=== PATIENT | female | born 2000 | race Caucasian/White ===

== ENCOUNTER 2021-12-23 00:11 | Emergency (ER) | payer OTHER ==
[~2021-12-23] VITALS: Ht 170.2 cm; Wt 62.7 kg
[2021-12-23 01:05] LABS: BASO % 0.3 % (0.0-1.0); EOS # 0.1 10^3/uL (0.0-0.5); EOS % 0.5 % (0.0-3.0); HEMATOCRIT 33.1 % (36.0-47.0); HEMOGLOBIN 11.1 g/dl (12.0-15.5); LYMPH # 2.7 10^3/uL (1.5-5.0); MEAN CORPUSCULAR HEMOGLOBIN 29.1 pg (27.0-33.0); MEAN CORPUSCULAR HGB CONC 33.5 g/dl (32.0-36.5); MEAN CORPUSCULAR VOLUME 86.6 fl (80.0-96.0); MONO # 1.1 10^3/uL (0.0-0.8); MONO % 6.7 % (2.0-8.0); NEUTROPHILS # 11.9 10^3/uL (1.5-8.5); NEUTROPHILS % 75.1 % (36.0-66.0); PLATELET COUNT, AUTOMATED 239 10^3/uL (150-450); RED BLOOD COUNT 3.82 10^6/uL (4.00-5.40); WHITE BLOOD COUNT 15.8 10^3/uL (4.0-10.0)
[2021-12-23] MEDS ORDERED: ONDANSETRON 4MG/2ML VIAL IV ONE (01:05)
[2021-12-23] MEDS ORDERED: MORPHINE 4 MG/ML 1ML VIAL/SYRINGE (J2270) IV ONE (01:05)
[2021-12-23 01:20] LABS: HCG, SERUM QUALITATIVE NEGATIVE (NEGATIVE)
[2021-12-23 01:45] LABS: ALBUMIN 4.2 GM/DL (3.2-5.2); ALT/SGPT 17 U/L (12-78); AMYLASE 39 U/L (25-115); BILIRUBIN,DIRECT 0.2 MG/DL (0.0-0.2); BILIRUBIN,TOTAL 0.5 MG/DL (0.2-1.0); BLOOD UREA NITROGEN 11 MG/DL (7-18); CALCIUM LEVEL 8.9 MG/DL (8.5-10.1); CARBON DIOXIDE LEVEL 27 MEQ/L (21-32); CHLORIDE LEVEL 110 MEQ/L (98-107); CREATININE FOR GFR 0.73 MG/DL (0.55-1.30); GLUCOSE, FASTING 112 MG/DL (70-100); LIPASE 138 U/L (73-393); POTASSIUM SERUM 3.3 MEQ/L (3.5-5.1); SODIUM LEVEL 142 MEQ/L (136-145); TOTAL PROTEIN 7.7 GM/DL (6.4-8.2)
[2021-12-23] MEDS ORDERED: TAMSULOSIN 0.4 MG CAP PO ONE (02:35)
[2021-12-23] MEDS ORDERED: NORCO, ANEXSIA 5/325MG TABLET (HYDROcodone/ACETAMINOPHEN) PO ONE (02:35)
[2021-12-23] MEDS ORDERED: NS 1,000 ML IV ONE (02:35)
[2021-12-23] MEDS ORDERED: HYDR-3713 PO (02:45)
[2021-12-23] MEDS ORDERED: NORCO 5/325MG TABLET (BULK FOR ED) PO ONE (02:45)
[2021-12-23 02:54] VITALS: BP 121/69
== END 2021-12-23 02:56 | disposition home or self-care (01) ==
LOC: M ED 00:11
DX: N83.209 Unspecified ovarian cyst, unspecified side (principal); K59.00 Constipation, unspecified; Z83.79 Family history of other diseases of the digestive system
CPT/HCPCS: 74176; 80048; 80076; 81001; 82150; 83690; 84703; 85025; 96374; 99284; J2270; J2405

== ENCOUNTER 2022-03-01 11:25 | Emergency (ER) | payer OTHER ==
[~2022-03-01] VITALS: Ht 170.2 cm; Wt 63.7 kg
[~2022-03-01 11:25] MED LIST: HYDR-3713 PO
[2022-03-01] MEDS ORDERED: KETOROLAC 60MG 2ML VIAL IM ONE (17:15)
[2022-03-01 18:38] VITALS: BP 132/78
== END 2022-03-01 18:41 | disposition home or self-care (01) ==
LOC: M ED 11:25
DX: S76.012A Strain of muscle, fascia and tendon of left hip, initial encounter (principal); Y92.9 Unspecified place or not applicable; Y93.01 Activity, walking, marching and hiking; Y99.1 Military activity
CPT/HCPCS: 73502; 73552; 96372; 99283; J1885

== ENCOUNTER 2022-06-23 22:17 | Emergency (ER) | payer OTHER ==
[~2022-06-23] VITALS: Ht 170.2 cm; Wt 64.4 kg
[2022-06-23 22:18] VITALS: BP 109/58
[2022-06-23] MEDS ORDERED: BENZ200C70 PO (22:26)
[2022-06-23] MEDS ORDERED: MUCI1TAB18 PO (22:26)
[2022-06-23] MEDS ORDERED: PSEU30TA86 PO (22:26)
== END 2022-06-23 23:57 | disposition left against medical advice (07) ==
LOC: M ED 22:17
DX: Z53.21 Procedure and treatment not carried out due to patient leaving prior to being seen by health care provider (principal)

== ENCOUNTER 2022-09-09 08:31 | Inpatient (IN) | payer OTHER ==
[~2022-09-09] VITALS: Ht 170.2 cm; Wt 61.0 kg
[~2022-09-09 08:31] MED LIST changes: +BENZ200C70 PO; +MUCI1TAB18 PO; +PSEU30TA86 PO
[2022-09-09 09:13] LABS: HEMOGLOBIN 11.5 g/dl (12.0-15.5); MEAN CORPUSCULAR HEMOGLOBIN 29.6 pg (27.0-33.0); MEAN CORPUSCULAR HGB CONC 33.8 g/dl (32.0-36.5); MEAN CORPUSCULAR VOLUME 87.6 fl (80.0-96.0); PLATELET COUNT, AUTOMATED 250 10^3/uL (150-450); RED BLOOD COUNT 3.88 10^6/uL (4.00-5.40); WHITE BLOOD COUNT 9.7 10^3/uL (4.0-10.0)
[2022-09-09 09:29] LABS: HCG, SERUM QUALITATIVE NEGATIVE (NEGATIVE)
[2022-09-09 09:41] LABS: ACETAMINOPHEN LEVEL < 2.0 UG/ML (10.0-20.0); ALBUMIN 4.4 G/DL (3.2-5.2); ALKALINE PHOSPHATASE 46 U/L (46-116); ALT/SGPT 16 U/L (7.0-40); AMPHETAMINES LEVEL URINE NEGATIVE (NEGATIVE); AST/SGOT 17 U/L (<34); BARBITURATES URINE NEGATIVE (NEGATIVE); BENZODIAZEPINES URINE NEGATIVE (NEGATIVE); BILIRUBIN,DIRECT 0.2 MG/DL (<0.4); BILIRUBIN,TOTAL 0.6 MG/DL (0.3-1.2); BLOOD UREA NITROGEN 7 MG/DL (9-23); CALCIUM LEVEL 9.2 MG/DL (8.5-10.1); CANNABINOIDS URINE NEGATIVE (NEGATIVE); CARBON DIOXIDE LEVEL 24 MMOL/L (20-31); CHLORIDE LEVEL 107 MMOL/L (98-107); COCAINE METABOLITE URINE NEGATIVE (NEGATIVE); CREATININE FOR GFR 0.56 MG/DL (0.55-1.30); ETHYL ALCOHOL (ETHANOL) 0.003 % (0.000-0.010); GLUCOSE, FASTING 101 MG/DL (60-100); METHADONE URINE NEGATIVE (NEGATIVE); OPIATES URINE NEGATIVE (NEGATIVE); PHENCYCLIDINE URINE NEGATIVE (NEGATIVE); POTASSIUM SERUM 3.9 MMOL/L (3.5-5.1); SODIUM LEVEL 140 MMOL/L (136-145); THYROID STIMULATING HORMONE 1.561 uIU/ML (0.48-4.17); TOTAL PROTEIN 7.2 G/DL (5.7-8.2)
[2022-09-09 09:47] LABS: SALICYLATE LEVEL < 3.0 MG/DL (<30)
[2022-09-09 09:48] LABS: RSV AMPLIFICATION NEGATIVE (NEGATIVE)
[2022-09-09] MEDS ORDERED: IBUPROFEN 400MG TAB PO PRN (12:30)
[2022-09-09] MEDS ORDERED: MOM 30ML SUSPENSION UDC PO PRN (12:30)
[2022-09-09] MEDS ORDERED: MAALOX 30 ML SUSP *UDC PO PRN (12:30)
[2022-09-09] MEDS ORDERED: ACET325C5 PO (13:43)
[2022-09-09] MEDS ORDERED: TRAM50TA2 PO (13:43)
[2022-09-09] MEDS ORDERED: HOME MED LIST COMPLETE! XX SCH (13:45)
[2022-09-09 15:57] VITALS: BP 129/61
[2022-09-09] MEDS: NICOTINE 21MG/24HR 1 EA TRANSDERMAL TD SCH (17:20)
[2022-09-10 06:34] VITALS: BP 116/56
[2022-09-10] MEDS ORDERED: LIDOCAINE 5% (LIDODERM) PATCH TD SCH (09:00)
[2022-09-10] MEDS: NICOTINE 21MG/24HR 1 EA TRANSDERMAL TD SCH (09:00)
[2022-09-10] MEDS ORDERED: DICLOFENAC EPOLAMINE 1.3 % PATCH TOP SCH (09:00)
[2022-09-10] MEDS: SERTRALINE HCL 25 MG TABLET PO SCH (09:35)
[2022-09-10] MEDS ORDERED: oxyCODONE 5MG TAB PO PRN (09:40)
[2022-09-10] MEDS ORDERED: IBUPROFEN 400MG TAB PO PRN (09:40)
[2022-09-10] MEDS ORDERED: IBUPROFEN 600MG TAB PO PRN (10:05)
[2022-09-10] MEDS: LIDOCAINE 5% (LIDODERM) PATCH TD SCH (10:44)
[2022-09-10] MEDS: GABAPENTIN 300 MG CAP PO SCH (10:45)
[2022-09-10] MEDS: ACETAMINOPHEN 500 MG TAB PO SCH ×2 (11:31→18:02)
[2022-09-10] MEDS: ULTRACET TAB PO PRN ×2 (12:07→16:50)
[2022-09-10 16:28] VITALS: BP 136/73
[2022-09-10] MEDS: PRAZOSIN 1 MG CAP PO SCH (20:00)
[2022-09-11] MEDS: ACETAMINOPHEN 500 MG TAB PO SCH ×4 (00:10→18:24)
[2022-09-11 06:37] VITALS: BP 138/63
[2022-09-11] MEDS: SERTRALINE HCL 25 MG TABLET PO SCH (08:07)
[2022-09-11] MEDS: LIDOCAINE 5% (LIDODERM) PATCH TD SCH (08:07)
[2022-09-11] MEDS: GABAPENTIN 300 MG CAP PO SCH (08:07)
[2022-09-11] MEDS: ULTRACET TAB PO PRN (11:45)
[2022-09-11 16:55] VITALS: BP 129/60
[2022-09-11] MEDS: PRAZOSIN 1 MG CAP PO SCH (21:03)
[2022-09-11] MEDS: PILL CUTTER 1 EACH XX PRN (21:29)
[2022-09-12] MEDS: ACETAMINOPHEN 500 MG TAB PO SCH ×5 (00:09→23:51)
[2022-09-12 06:54] VITALS: BP 116/58
[2022-09-12] MEDS: GABAPENTIN 300 MG CAP PO SCH (08:18)
[2022-09-12] MEDS: SERTRALINE HCL 25 MG TABLET PO SCH (08:18)
[2022-09-12] MEDS: LIDOCAINE 5% (LIDODERM) PATCH TD SCH (08:18)
[2022-09-12] MEDS: PILL CUTTER 1 EACH XX PRN (10:30)
[2022-09-12 18:13] VITALS: BP 104/56
[2022-09-12 20:24] VITALS: BP 152/88
[2022-09-12] MEDS: PRAZOSIN 1 MG CAP PO SCH (20:24)
[2022-09-13] MEDS: ACETAMINOPHEN 500 MG TAB PO SCH ×2 (05:57→12:31)
[2022-09-13 06:42] VITALS: BP 118/61
[2022-09-13] MEDS: PILL CUTTER 1 EACH XX PRN (08:42)
[2022-09-13] MEDS: LIDOCAINE 5% (LIDODERM) PATCH TD SCH (08:42)
[2022-09-13] MEDS: GABAPENTIN 300 MG CAP PO SCH (08:42)
[2022-09-13] MEDS: SERTRALINE HCL 25 MG TABLET PO SCH (08:42)
[2022-09-13] MEDS ORDERED: HYDR-643 PO (09:40)
[2022-09-13] MEDS ORDERED: MINI1CAP PO (09:40)
[2022-09-13] MEDS ORDERED: GABA-282 PO (09:40)
[2022-09-13] MEDS ORDERED: SERT25TA21 PO (09:40)
[2022-09-13] MEDS ORDERED: TRAM37.53 PO (09:40)
== END 2022-09-13 12:35 | disposition home or self-care (01) | DRG 882 ==
LOC: M ED 08:31 → M ED INP 12:27 → M PSY 15:50
PROVIDERS: ADMIT Psychiatry & Neurology Psychiatry; ATTEND Psychiatry & Neurology Psychiatry
DX: F43.10 Post-traumatic stress disorder, unspecified (principal); Z79.899 Other long term (current) drug therapy; F41.9 Anxiety disorder, unspecified

== ENCOUNTER → 2022-10-28 | Outpatient (CLI) | payer OTHER ==
[~2022-10-28] MED LIST changes: +ACET325C5 PO; +GABA-282 PO; +HYDR-643 PO; +ISOVUE-300 61% 100ML VIAL As Ordered ONE; +LIDOCAINE 1% MDV 20ML VIAL As Ordered ONE; +MINI1CAP PO; +PROHANCE 279.3MG/ML 5ML VIAL As Ordered ONE; +SERT25TA21 PO; +TRAM37.53 PO; +TRAM50TA2 PO
== END ==
LOC: M RAD 07:08
PROVIDERS: ATTEND Orthopaedic Surgery
DX: M25.552 Pain in left hip (principal)
CPT/HCPCS: 27093; 73723; 77002; A9576

== ENCOUNTER → 2022-11-24 | Outpatient (CLI) | payer OTHER ==
[~2022-11-24] MED LIST changes: -ISOVUE-300 61% 100ML VIAL As Ordered ONE; -LIDOCAINE 1% MDV 20ML VIAL As Ordered ONE; -PROHANCE 279.3MG/ML 5ML VIAL As Ordered ONE
[2022-11-24 18:19] LABS: COLLAGEN EPINEPHRINE 138 SECONDS (74-162)
== END ==
LOC: M LAB 17:08
PROVIDERS: ATTEND Physical Medicine & Rehabilitation
DX: Z01.812 Encounter for preprocedural laboratory examination (principal)

== ENCOUNTER → 2022-11-28 | Outpatient (CLI) | payer OTHER ==
[~2022-11-28] MED LIST changes: +ISOVUE-300 61% 100ML VIAL As Ordered ONE; +LIDOCAINE 1% MDV 20ML VIAL As Ordered ONE; +methylPREDNISolone SUSP 40MG/ML 1ML VIAL (DEPO MEDROL) As Ordered ONE
== END ==
LOC: M RAD 14:46
PROVIDERS: ATTEND Physician Assistant Surgical
DX: M25.552 Pain in left hip (principal)
CPT/HCPCS: 20610; 36415; 76000; 85027; 85610; 85730; J1030

== ENCOUNTER → 2022-11-28 | Outpatient (CLI) | payer OTHER ==
[~2022-11-28] MED LIST changes: -ISOVUE-300 61% 100ML VIAL As Ordered ONE; -LIDOCAINE 1% MDV 20ML VIAL As Ordered ONE; -methylPREDNISolone SUSP 40MG/ML 1ML VIAL (DEPO MEDROL) As Ordered ONE
[2022-11-28 19:09] LABS: PLATELET COUNT, AUTOMATED 283 10^3/uL (150-450)
[2022-11-28 19:20] LABS: INR 0.97; PROTHROMBIN TIME 13.1 SECONDS (12.5-14.5)
== END ==
LOC: M LAB 18:33
PROVIDERS: ATTEND Physical Medicine & Rehabilitation
DX: Z01.812 Encounter for preprocedural laboratory examination (principal)

== ENCOUNTER 2023-01-15 10:08 | Observation (INO) | payer OTHER ==
[~2023-01-15] VITALS: Ht 170.2 cm; Wt 61.1 kg
[2023-01-15] MEDS ORDERED: ONDANSETRON 4MG ORAL DISINTEGRATING TAB PO ONE (11:35)
[2023-01-15] MEDS ORDERED: GI COCKTAIL 50ML BTL(HYOSCYAMINE/MAALOX/LIDOCAINE VISCOUS)(1:3:1) PO ONE (11:35)
[2023-01-15 12:03] LABS: BASO % 0.3 % (0.0-1.0); EOS % 0.2 % (0.0-3.0); HEMATOCRIT 33.8 % (36.0-47.0); HEMOGLOBIN 11.5 g/dl (12.0-15.5); LYMPH # 1.1 10^3/uL (1.5-5.0); LYMPH % 8.6 % (24.0-44.0); MEAN CORPUSCULAR HEMOGLOBIN 29.7 pg (27.0-33.0); MEAN CORPUSCULAR VOLUME 87.3 fl (80.0-96.0); MONO # 0.8 10^3/uL (0.0-0.8); MONO % 6.3 % (2.0-8.0); NEUTROPHILS # 10.9 10^3/uL (1.5-8.5); NEUTROPHILS % 84.3 % (36.0-66.0); PLATELET COUNT, AUTOMATED 256 10^3/uL (150-450); RED BLOOD COUNT 3.87 10^6/uL (4.00-5.40)
[2023-01-15] MEDS ORDERED: NS 1,000 ML IV ONE (12:25)
[2023-01-15 12:36] LABS: LIPASE 31 U/L (12-53)
[2023-01-15 12:39] LABS: ALBUMIN 4.1 G/DL (3.2-5.2); ALKALINE PHOSPHATASE 60 U/L (46-116); ALT/SGPT 13 U/L (7.0-40); AST/SGOT 17 U/L (<34); BILIRUBIN,DIRECT 0.2 MG/DL (<0.4); BILIRUBIN,TOTAL 0.5 MG/DL (0.3-1.2); BLOOD UREA NITROGEN 7 MG/DL (9-23); CALCIUM LEVEL 8.9 MG/DL (8.5-10.1); CARBON DIOXIDE LEVEL 27 MMOL/L (20-31); CHLORIDE LEVEL 106 MMOL/L (98-107); CREATININE FOR GFR 0.57 MG/DL (0.55-1.30); GLOMERULAR FILTRATION RATE > 60.0 (>60); GLUCOSE, FASTING 92 MG/DL (60-100); POTASSIUM SERUM 3.9 MMOL/L (3.5-5.1); SODIUM LEVEL 140 MMOL/L (136-145); TOTAL PROTEIN 6.9 G/DL (5.7-8.2)
[2023-01-15] MEDS ORDERED: ISOVUE-370 76% 100ML VIAL As Ordered ONE (12:46)
[2023-01-15] MEDS ORDERED: PIPERACILLIN/TAZOBACTAM SOD 3.375 GM in D5W MINI-BAG PLUS 50 ML IV ONE (13:25)
[2023-01-15] MEDS ORDERED: MORPHINE 4 MG/ML 1ML VIAL IV ONE (13:40)
[2023-01-15] MEDS ORDERED: HYDR-3363 PO (14:44)
[2023-01-15] MEDS ORDERED: SERT50TA29 PO (14:44)
[2023-01-15] MEDS ORDERED: HOME MED LIST COMPLETE! XX SCH (14:45)
[2023-01-15] MEDS ORDERED: MORPHINE 2 MG/ML 1ML VIAL IV PRN (15:45)
[2023-01-15] MEDS ORDERED: MORPHINE 4 MG/ML 1ML VIAL IV PRN (15:45)
[2023-01-15] MEDS ORDERED: ONDANSETRON 4MG TAB PO PRN (15:45)
[2023-01-15] MEDS: PANTOPRAZOLE 40MG VIAL IV SCH (16:42)
[2023-01-15] MEDS: NS 1,000 ML IV SCH (16:42)
[2023-01-15] MEDS: KETOROLAC 30 MG/ML 1ML VIAL IV SCH ×2 (16:50→22:16)
[2023-01-15 18:40] VITALS: BP 105/62
[2023-01-15] MEDS: PIPERACILLIN/TAZOBACTAM SOD 3.375 GM in D5W MINI-BAG PLUS 50 ML IV SCH (20:07)
[2023-01-15 22:00] VITALS: BP 106/52
[2023-01-16] MEDS: PIPERACILLIN/TAZOBACTAM SOD 3.375 GM in D5W MINI-BAG PLUS 50 ML IV SCH ×4 (01:57→21:12)
[2023-01-16] MEDS: NS 1,000 ML IV SCH ×3 (01:57→23:31)
[2023-01-16 02:00] VITALS: BP 108/54
[2023-01-16] MEDS: KETOROLAC 30 MG/ML 1ML VIAL IV SCH ×4 (05:18→22:21)
[2023-01-16 06:00] VITALS: BP 99/47
[2023-01-16 06:12] LABS: HEMATOCRIT 29.8 % (36.0-47.0); HEMOGLOBIN 9.9 g/dl (12.0-15.5); MEAN CORPUSCULAR HEMOGLOBIN 29.4 pg (27.0-33.0); MEAN CORPUSCULAR HGB CONC 33.2 g/dl (32.0-36.5); MEAN CORPUSCULAR VOLUME 88.4 fl (80.0-96.0); PLATELET COUNT, AUTOMATED 206 10^3/uL (150-450); RED BLOOD COUNT 3.37 10^6/uL (4.00-5.40); WHITE BLOOD COUNT 9.5 10^3/uL (4.0-10.0)
[2023-01-16 06:45] LABS: BLOOD UREA NITROGEN 12 MG/DL (9-23); CALCIUM LEVEL 8.3 MG/DL (8.5-10.1); CARBON DIOXIDE LEVEL 25 MMOL/L (20-31); CHLORIDE LEVEL 108 MMOL/L (98-107); CREATININE FOR GFR 0.62 MG/DL (0.55-1.30); GLOMERULAR FILTRATION RATE > 60.0 (>60); GLUCOSE, FASTING 71 MG/DL (60-100); POTASSIUM SERUM 3.9 MMOL/L (3.5-5.1); SODIUM LEVEL 140 MMOL/L (136-145)
[2023-01-16] MEDS: PANTOPRAZOLE 40MG VIAL IV SCH (08:17)
[2023-01-16 10:00] VITALS: BP 112/58
[2023-01-16 22:00] VITALS: BP 122/59
[2023-01-17 02:00] VITALS: BP 126/74
[2023-01-17] MEDS: PIPERACILLIN/TAZOBACTAM SOD 3.375 GM in D5W MINI-BAG PLUS 50 ML IV SCH ×4 (02:51→20:32)
[2023-01-17] MEDS: NS 1,000 ML IV SCH ×4 (02:51→22:40)
[2023-01-17] MEDS: KETOROLAC 30 MG/ML 1ML VIAL IV SCH ×4 (05:35→22:40)
[2023-01-17 06:00] VITALS: BP 110/65
[2023-01-17] MEDS: MORPHINE 2 MG/ML 1ML VIAL IV PRN ×2 (06:21→12:25)
[2023-01-17 07:43] LABS: HEMATOCRIT 28.7 % (36.0-47.0); HEMOGLOBIN 9.8 g/dl (12.0-15.5); MEAN CORPUSCULAR HEMOGLOBIN 29.9 pg (27.0-33.0); MEAN CORPUSCULAR HGB CONC 34.1 g/dl (32.0-36.5); MEAN CORPUSCULAR VOLUME 87.5 fl (80.0-96.0); PLATELET COUNT, AUTOMATED 217 10^3/uL (150-450); RED BLOOD COUNT 3.28 10^6/uL (4.00-5.40); WHITE BLOOD COUNT 4.6 10^3/uL (4.0-10.0)
[2023-01-17 08:00] VITALS: BP 129/76
[2023-01-17] MEDS: PANTOPRAZOLE 40MG VIAL IV SCH (08:31)
[2023-01-17] MEDS ORDERED: ISOVUE-370 76% 100ML VIAL As Ordered ONE (08:48)
[2023-01-17 14:18] VITALS: BP 115/62
[2023-01-17 19:43] VITALS: BP 112/61
[2023-01-18] MEDS: PIPERACILLIN/TAZOBACTAM SOD 3.375 GM in D5W MINI-BAG PLUS 50 ML IV SCH ×2 (02:24→10:16)
[2023-01-18] MEDS: KETOROLAC 30 MG/ML 1ML VIAL IV SCH ×2 (05:27→12:00)
[2023-01-18 05:34] VITALS: BP 114/63
[2023-01-18 07:00] LABS: HEMATOCRIT 31.3 % (36.0-47.0); HEMOGLOBIN 10.6 g/dl (12.0-15.5); MEAN CORPUSCULAR HEMOGLOBIN 29.7 pg (27.0-33.0); MEAN CORPUSCULAR HGB CONC 33.9 g/dl (32.0-36.5); MEAN CORPUSCULAR VOLUME 87.7 fl (80.0-96.0); PLATELET COUNT, AUTOMATED 229 10^3/uL (150-450); RED BLOOD COUNT 3.57 10^6/uL (4.00-5.40); WHITE BLOOD COUNT 5.5 10^3/uL (4.0-10.0)
[2023-01-18 07:34] LABS: ALBUMIN 3.5 G/DL (3.2-5.2); ALKALINE PHOSPHATASE 45 U/L (46-116); ALT/SGPT 15 U/L (7.0-40); AST/SGOT 18 U/L (<34); BILIRUBIN,TOTAL 0.6 MG/DL (0.3-1.2); BLOOD UREA NITROGEN 5 MG/DL (9-23); CALCIUM LEVEL 8.2 MG/DL (8.5-10.1); CARBON DIOXIDE LEVEL 26 MMOL/L (20-31); CHLORIDE LEVEL 106 MMOL/L (98-107); CREATININE FOR GFR 0.58 MG/DL (0.55-1.30); GLOMERULAR FILTRATION RATE > 60.0 (>60); GLUCOSE, FASTING 83 MG/DL (60-100); POTASSIUM SERUM 3.7 MMOL/L (3.5-5.1); SODIUM LEVEL 141 MMOL/L (136-145); TOTAL PROTEIN 6.2 G/DL (5.7-8.2)
[2023-01-18] MEDS: NS 1,000 ML IV SCH (07:45)
[2023-01-18] MEDS ORDERED: AUGM500T34 PO (08:25)
[2023-01-18] MEDS: PANTOPRAZOLE 40MG VIAL IV SCH (10:16)
== END 2023-01-18 14:10 | disposition home or self-care (01) ==
LOC: M ED 10:08 → M ED INP 15:45 → ENRESERV 16:57 → M MS5PR 18:45
PROVIDERS: ADMIT Surgery; ATTEND Surgery
DX: R10.9 Unspecified abdominal pain (principal); A08.39 Other viral enteritis; D72.829 Elevated white blood cell count, unspecified
CPT/HCPCS: 36415; 74177; 76856; 80048; 80053; 80076; 83690; 84702; 85025; 85027; 87635; 93976; 96361; 96365; 96366; 96375; 96376; 99284; C9113; J1885; J2543; Q9967

== ENCOUNTER 2023-01-24 17:39 | Observation (INO) | payer OTHER ==
[~2023-01-24] VITALS: Ht 170.2 cm; Wt 73.5 kg
[~2023-01-24 17:39] MED LIST changes: +AUGM500T34 PO; +HYDR-3363 PO; +SERT50TA29 PO
[2023-01-24 18:20] LABS: BASO # 0.1 10^3/uL (0.0-0.2); BASO % 0.6 % (0.0-1.0); EOS # 0.1 10^3/uL (0.0-0.5); EOS % 1.5 % (0.0-3.0); HEMATOCRIT 35.6 % (36.0-47.0); HEMOGLOBIN 12.1 g/dl (12.0-15.5); LYMPH # 2.8 10^3/uL (1.5-5.0); LYMPH % 35.2 % (24.0-44.0); MEAN CORPUSCULAR HEMOGLOBIN 29.7 pg (27.0-33.0); MEAN CORPUSCULAR VOLUME 87.3 fl (80.0-96.0); MONO # 0.7 10^3/uL (0.0-0.8); MONO % 8.6 % (2.0-8.0); NEUTROPHILS # 4.3 10^3/uL (1.5-8.5); NEUTROPHILS % 53.9 % (36.0-66.0); PLATELET COUNT, AUTOMATED 293 10^3/uL (150-450); RED BLOOD COUNT 4.08 10^6/uL (4.00-5.40)
[2023-01-24 18:48] LABS: LIPASE 58 U/L (12-53)
[2023-01-24 18:50] LABS: ALBUMIN 4.4 G/DL (3.2-5.2); ALKALINE PHOSPHATASE 50 U/L (46-116); ALT/SGPT 15 U/L (7.0-40); AST/SGOT 17 U/L (<34); BILIRUBIN,DIRECT < 0.1 MG/DL (<0.4); BILIRUBIN,TOTAL 0.2 MG/DL (0.3-1.2); BLOOD UREA NITROGEN 8 MG/DL (9-23); CALCIUM LEVEL 9.5 MG/DL (8.5-10.1); CARBON DIOXIDE LEVEL 28 MMOL/L (20-31); CHLORIDE LEVEL 102 MMOL/L (98-107); GLOMERULAR FILTRATION RATE > 60.0 (>60); GLUCOSE, FASTING 91 MG/DL (60-100); POTASSIUM SERUM 4.6 MMOL/L (3.5-5.1); SODIUM LEVEL 137 MMOL/L (136-145); TOTAL PROTEIN 7.6 G/DL (5.7-8.2)
[2023-01-24 18:53] LABS: HCG, SERUM QUALITATIVE NEGATIVE (NEGATIVE)
[2023-01-24] MEDS ORDERED: ONDANSETRON 4MG 2ML VIAL IV ONE (19:20)
[2023-01-24] MEDS ORDERED: NS 1,000 ML IV SCH (19:20)
[2023-01-24] MEDS ORDERED: MORPHINE 4 MG/ML 1ML VIAL IV ONE ×2 (19:20→21:30)
[2023-01-24] MEDS ORDERED: ISOVUE-370 76% 100ML VIAL As Ordered ONE (19:25)
[2023-01-24] MEDS ORDERED: SERT50TA29 PO (22:58)
[2023-01-24] MEDS ORDERED: HYDR-3363 PO ×2 (22:58)
[2023-01-24] MEDS ORDERED: HOME MED LIST COMPLETE! XX SCH (23:40)
[2023-01-24] MEDS ORDERED: ACETAMINOPHEN TAB 650MG DOSE (2X325MG) PO PRN (23:55)
[2023-01-25] MEDS ORDERED: PANTOPRAZOLE 40MG VIAL IV ONE
[2023-01-25] MEDS ORDERED: MORPHINE 2 MG/ML 1ML VIAL IV PRN (00:05)
[2023-01-25 00:41] LABS: RSV AMPLIFICATION NEGATIVE (NEGATIVE)
[2023-01-25 01:00] VITALS: BP 114/71
[2023-01-25] MEDS: LR 1,000 ML IV SCH ×2 (01:28→08:03)
[2023-01-25 02:04] LABS: APPEARANCE, URINE CLEAR (CLEAR); BACTERIA, URINE AUTO NEGATIVE (NEGATIVE); BILIRUBIN, URINE AUTO NEGATIVE (NEGATIVE); BLOOD, URINE BLOOD NEGATIVE (NEGATIVE); COLOR, URINE STRAW (YELLOW); GLUCOSE, URINE (UA) AUTO NEGATIVE (NEGATIVE); KETONE, URINE AUTO NEGATIVE (NEGATIVE); LEUKOCYTE ESTERASE, URINE AUTO NEGATIVE (NEGATIVE); NITRITE, URINE AUTO NEGATIVE (NEGATIVE); PROTEIN, URINE AUTO NEGATIVE (NEGATIVE); RBC, URINE AUTO 0 /HPF (0-3); SPECIFIC GRAVITY URINE AUTO 1.045 (1.002-1.035); SQUAMOUS EPITHELIAL CELL UR AU 1 /HPF (0-6); UROBILINOGEN, URINE AUTO 0.2 mg/dL (0.0-2.0); WBC, URINE AUTO 0 /HPF (0-3)
[2023-01-25 06:00] VITALS: BP 102/48
[2023-01-25 06:25] LABS: HEMATOCRIT 32.1 % (36.0-47.0); HEMOGLOBIN 11.2 g/dl (12.0-15.5); MEAN CORPUSCULAR HEMOGLOBIN 30.6 pg (27.0-33.0); MEAN CORPUSCULAR HGB CONC 34.9 g/dl (32.0-36.5); MEAN CORPUSCULAR VOLUME 87.7 fl (80.0-96.0); PLATELET COUNT, AUTOMATED 263 10^3/uL (150-450); RED BLOOD COUNT 3.66 10^6/uL (4.00-5.40); WHITE BLOOD COUNT 5.6 10^3/uL (4.0-10.0)
[2023-01-25 06:40] LABS: ALBUMIN 3.6 G/DL (3.2-5.2); ALKALINE PHOSPHATASE 42 U/L (46-116); ALT/SGPT 12 U/L (7.0-40); AST/SGOT 15 U/L (<34); BILIRUBIN,TOTAL 0.6 MG/DL (0.3-1.2); BLOOD UREA NITROGEN 7 MG/DL (9-23); CALCIUM LEVEL 8.3 MG/DL (8.5-10.1); CARBON DIOXIDE LEVEL 24 MMOL/L (20-31); CHLORIDE LEVEL 105 MMOL/L (98-107); CREATININE FOR GFR 0.61 MG/DL (0.55-1.30); GLOMERULAR FILTRATION RATE > 60.0 (>60); GLUCOSE, FASTING 86 MG/DL (60-100); MAGNESIUM LEVEL 1.7 MG/DL (1.8-2.4); SODIUM LEVEL 138 MMOL/L (136-145); TOTAL PROTEIN 6.2 G/DL (5.7-8.2)
[2023-01-25 07:51] VITALS: BP 102/62
[2023-01-25] MEDS: SERTRALINE HCL 50 MG TAB PO SCH (08:03)
[2023-01-25] MEDS ORDERED: PANTOPRAZOLE 40MG VIAL IV SCH (09:00)
[2023-01-25] MEDS ORDERED: OXYC1TAB23 PO (12:35)
[2023-01-25] MEDS ORDERED: MOM 30ML SUSPENSION UDC PO PRN (12:35)
[2023-01-25] MEDS ORDERED: PERCOCET 5MG/325MG TAB PO PRN ×2 (12:35)
[2023-01-25] MEDS ORDERED: SENOKOT S TAB PO PRN (12:35)
[2023-01-25] MEDS ORDERED: SENO8.6T10 PO (12:35)
[2023-01-25] MEDS ORDERED: MILKSUS3 PO (12:35)
[2023-01-25 13:21] LABS: INR 1.04; PROTHROMBIN TIME 13.8 SECONDS (12.5-14.5)
[2023-01-25 13:22] LABS: PARTIAL THROMBOPLASTIN TIME 26.5 SECONDS (24.8-34.2)
[2023-01-25 13:25] LABS: D-DIMER QUANT 670.86 ng/ml (<500)
[2023-01-25 14:00] VITALS: BP 119/70
[2023-01-25] MEDS ORDERED: GI COCKTAIL 50ML BTL(HYOSCYAMINE/MAALOX/LIDOCAINE VISCOUS)(1:3:1) PO ONE (14:50)
[2023-01-25] MEDS ORDERED: SUCRALFATE SUSP 1GM/10ML UD PO ONE (14:50)
[2023-01-25] MEDS ORDERED: GI COCKTAIL 50ML BTL(HYOSCYAMINE/MAALOX/LIDOCAINE VISCOUS)(1:3:1) PO PRN (14:50)
[2023-01-25] MEDS ORDERED: PANTOPRAZOLE 40MG TAB (PROTONIX) PO ONE (14:55)
[2023-01-25] MEDS ORDERED: NS 500 ML IV ONE (14:55)
[2023-01-25] MEDS ORDERED: KETOROLAC 30 MG/ML 1ML VIAL IV ONE (14:55)
[2023-01-25] MEDS ORDERED: NS 1,000 ML IV SCH (15:00)
[2023-01-25] MEDS ORDERED: MAG SULF 1GM/100ML (MAG RUN) 1 GM in IV 1 EA IV ONE (16:00)
[2023-01-25] MEDS ORDERED: SUCRALFATE SUSP 1GM/10ML UD PO SCH (17:30)
[2023-01-25] MEDS: SUCRALFATE 1 GM TAB PO SCH ×2 (18:31→20:44)
[2023-01-25 20:00] VITALS: BP 123/60
[2023-01-26 06:00] VITALS: BP 102/43
[2023-01-26 08:30] LABS: BASO % 0.5 % (0.0-1.0); EOS # 0.1 10^3/uL (0.0-0.5); EOS % 2.2 % (0.0-3.0); HEMATOCRIT 34.4 % (36.0-47.0); HEMOGLOBIN 11.4 g/dl (12.0-15.5); LYMPH # 1.7 10^3/uL (1.5-5.0); LYMPH % 31.6 % (24.0-44.0); MEAN CORPUSCULAR HEMOGLOBIN 29.2 pg (27.0-33.0); MEAN CORPUSCULAR HGB CONC 33.1 g/dl (32.0-36.5); MEAN CORPUSCULAR VOLUME 88.2 fl (80.0-96.0); MONO # 0.6 10^3/uL (0.0-0.8); MONO % 10.2 % (2.0-8.0); NEUTROPHILS % 55.3 % (36.0-66.0); PLATELET COUNT, AUTOMATED 270 10^3/uL (150-450); WHITE BLOOD COUNT 5.5 10^3/uL (4.0-10.0)
[2023-01-26 08:46] LABS: ERYTHROCYTE SEDIMENTATION RATE 3 mm/hr (0-20)
[2023-01-26] MEDS: SUCRALFATE 1 GM TAB PO SCH ×2 (08:46→12:00)
[2023-01-26] MEDS: SERTRALINE HCL 50 MG TAB PO SCH (08:46)
[2023-01-26 08:58] LABS: ALBUMIN 3.8 G/DL (3.2-5.2); ALKALINE PHOSPHATASE 45 U/L (46-116); ALT/SGPT 14 U/L (7.0-40); AST/SGOT 14 U/L (<34); BILIRUBIN,TOTAL 0.5 MG/DL (0.3-1.2); BLOOD UREA NITROGEN 7 MG/DL (9-23); CALCIUM LEVEL 9.1 MG/DL (8.5-10.1); CARBON DIOXIDE LEVEL 26 MMOL/L (20-31); CHLORIDE LEVEL 107 MMOL/L (98-107); GLOMERULAR FILTRATION RATE > 60.0 (>60); GLUCOSE, FASTING 86 MG/DL (60-100); POTASSIUM SERUM 4.4 MMOL/L (3.5-5.1); SODIUM LEVEL 138 MMOL/L (136-145); TOTAL PROTEIN 6.6 G/DL (5.7-8.2)
[2023-01-26] MEDS ORDERED: PANTOPRAZOLE 40MG TAB (PROTONIX) PO SCH (09:00)
[2023-01-27 13:08] LABS: ANTINUCLEAR ANTIBODIES DIRECT Negative (Negative); HAPTOGLOBIN 138 mg/dL (33-278)
== END 2023-01-26 13:30 | disposition home or self-care (01) ==
LOC: M ED 17:39 → M MSPAV 17:40 → M ED INP 17:40 → M MSPAV 01-25 01:00
PROVIDERS: ADMIT Internal Medicine; ATTEND General Practice
DX: R10.31 Right lower quadrant pain (principal); A04.1 Enterotoxigenic Escherichia coli infection; E83.42 Hypomagnesemia; F41.9 Anxiety disorder, unspecified; F32.A Depression, unspecified; F43.10 Post-traumatic stress disorder, unspecified; Z79.899 Other long term (current) drug therapy
CPT/HCPCS: 36415; 74177; 76830; 76856; 80048; 80053; 80076; 80503; 81001; 83010; 83070; 83615; 83690; 83735; 84145; 84703; 85025; 85027; 85046; 85379; 85384; 85610; 85652; 85730; 86038; 86140; 86880; 87338; 87507; 87631; 88300; 93976; 96361; 96374; 96375; 96376; 99285; C9113; J1885; J2405; J3475; Q9967

== ENCOUNTER 2023-03-09 15:46 | Emergency (ER) | payer OTHER ==
[~2023-03-09] VITALS: Ht 170.2 cm; Wt 69.7 kg
[~2023-03-09 15:46] MED LIST changes: +MILKSUS3 PO; +OXYC1TAB23 PO; +SENO8.6T10 PO
[2023-03-09] MEDS ORDERED: LIDOCAINE 1% MDV 20ML VIAL SC ONE (17:15)
[2023-03-09] MEDS ORDERED: CEPH500C PO (17:53)
[2023-03-09] MEDS ORDERED: IBUP-1022 PO (17:53)
[2023-03-09 18:01] VITALS: BP 123/74
== END 2023-03-09 18:02 | disposition home or self-care (01) ==
LOC: M ED 15:46
DX: L60.0 Ingrowing nail (principal); Z79.2 Long term (current) use of antibiotics; Z79.1 Long term (current) use of non-steroidal anti-inflammatories (NSAID); Z79.899 Other long term (current) drug therapy

== ENCOUNTER 2023-03-25 06:08 | Emergency (ER) | payer OTHER ==
[~2023-03-25] VITALS: Ht 170.2 cm; Wt 68.8 kg
[~2023-03-25 06:08] MED LIST changes: +CEPH500C PO; +IBUP-1022 PO
[2023-03-25] MEDS ORDERED: MAGNESIUM CITRATE 300ML BTL PO ONE (08:00)
[2023-03-25 08:05] VITALS: BP 105/56; TEMP 98.3; O2SAT 99
== END 2023-03-25 08:15 | disposition home or self-care (01) ==
LOC: M ED 06:08
DX: K59.00 Constipation, unspecified (principal); F10.10 Alcohol abuse, uncomplicated; Z79.2 Long term (current) use of antibiotics; Z79.899 Other long term (current) drug therapy; Z79.1 Long term (current) use of non-steroidal anti-inflammatories (NSAID)

== ENCOUNTER 2023-04-07 21:48 | Emergency (ER) | payer OTHER ==
[~2023-04-07] VITALS: Ht 170.2 cm; Wt 69.8 kg
[2023-04-07 21:49] VITALS: BP 117/71; TEMP 99.2; O2SAT 97
== END 2023-04-08 01:16 | disposition left against medical advice (07) ==
LOC: M ED 21:48
DX: Z53.21 Procedure and treatment not carried out due to patient leaving prior to being seen by health care provider (principal)

== ENCOUNTER 2023-05-22 15:32 | Emergency (ER) | payer OTHER ==
[~2023-05-22] VITALS: Ht 170.2 cm; Wt 70.7 kg
[2023-05-22 15:33] VITALS: BP 122/76; TEMP 97.6; O2SAT 100
[2023-05-22 18:27] LABS: AMORPHOUS SEDIMENT SMALL (NEGATIVE); APPEARANCE, URINE HAZY (CLEAR); BACTERIA, URINE AUTO NEGATIVE (NEGATIVE); BILIRUBIN, URINE AUTO NEGATIVE (NEGATIVE); BLOOD, URINE BLOOD NEGATIVE (NEGATIVE); COLOR, URINE YELLOW (YELLOW); GLUCOSE, URINE (UA) AUTO NEGATIVE (NEGATIVE); KETONE, URINE AUTO NEGATIVE (NEGATIVE); LEUKOCYTE ESTERASE, URINE AUTO NEGATIVE (NEGATIVE); NITRITE, URINE AUTO NEGATIVE (NEGATIVE); PROTEIN, URINE AUTO NEGATIVE (NEGATIVE); RBC, URINE AUTO 1 /HPF (0-3); SPECIFIC GRAVITY URINE AUTO 1.014 (1.002-1.035); SQUAMOUS EPITHELIAL CELL UR AU 1 /HPF (0-6); UROBILINOGEN, URINE AUTO 0.2 mg/dL (0.0-2.0); WBC, URINE AUTO 2 /HPF (0-3)
== END 2023-05-22 21:20 | disposition left against medical advice (07) ==
LOC: M ED 15:32
DX: Z53.21 Procedure and treatment not carried out due to patient leaving prior to being seen by health care provider (principal)

== ENCOUNTER 2023-05-23 10:55 | Day surgery (SDC) | payer OTHER ==
[~2023-05-23] VITALS: Ht 170.2 cm; Wt 71.0 kg
[2023-05-23 12:06] LABS: BASO % 0.3 % (0.0-1.0); EOS # 0.1 10^3/uL (0.0-0.5); EOS % 1.5 % (0.0-3.0); HEMATOCRIT 36.6 % (36.0-47.0); HEMOGLOBIN 12.4 g/dl (12.0-15.5); LYMPH # 1.4 10^3/uL (1.5-5.0); LYMPH % 24.6 % (24.0-44.0); MEAN CORPUSCULAR HGB CONC 33.9 g/dl (32.0-36.5); MEAN CORPUSCULAR VOLUME 85.7 fl (80.0-96.0); MONO # 0.6 10^3/uL (0.0-0.8); MONO % 10.8 % (2.0-8.0); NEUTROPHILS # 3.7 10^3/uL (1.5-8.5); NEUTROPHILS % 62.6 % (36.0-66.0); PLATELET COUNT, AUTOMATED 280 10^3/uL (150-450); RED BLOOD COUNT 4.27 10^6/uL (4.00-5.40); WHITE BLOOD COUNT 5.9 10^3/uL (4.0-10.0)
[2023-05-23 12:37] LABS: BLOOD UREA NITROGEN 8 MG/DL (9-23); CALCIUM LEVEL 9.6 MG/DL (8.5-10.1); CARBON DIOXIDE LEVEL 28 MMOL/L (20-31); CHLORIDE LEVEL 102 MMOL/L (98-107); CREATININE FOR GFR 0.65 MG/DL (0.55-1.30); GLOMERULAR FILTRATION RATE > 60.0 (>60); GLUCOSE, FASTING 71 MG/DL (60-100); POTASSIUM SERUM 3.8 MMOL/L (3.5-5.1); SODIUM LEVEL 138 MMOL/L (136-145)
[2023-05-23 12:56] LABS: HCG, SERUM QUANTITATIVE 2652.3 MIU/ML (<4.2)
[2023-05-23] MEDS ORDERED: MORPHINE 4 MG/ML 1ML VIAL IV ONE (14:55)
[2023-05-23] MEDS ORDERED: ONDANSETRON 4MG 2ML VIAL IV ONE (14:55)
[2023-05-23] MEDS ORDERED: NS 1,000 ML IV ONE (14:55)
[2023-05-23] MEDS ORDERED: MED REC IN PROGRESS XX SCH (15:20)
[2023-05-23] MEDS ORDERED: MED REC CURRENTLY UNOBTAINABLE XX SCH (15:40)
[2023-05-23] MEDS ORDERED: MIDAZOLAM INJ 2MG/2ML VIAL As Ordered ONE (15:53)
[2023-05-23] MEDS ORDERED: fentaNYL 100 MCG/2 ML INJECTION As Ordered ONE (15:53)
[2023-05-23] MEDS ORDERED: propofoL 200 MG/20 ML VIAL As Ordered ONE (15:55)
[2023-05-23] MEDS ORDERED: KETOROLAC 60MG 2ML VIAL As Ordered ONE (15:55)
[2023-05-23] MEDS ORDERED: ROCURONIUM BROMIDE 50MG/5ML VIAL As Ordered ONE ×2 (15:55→16:40)
[2023-05-23] MEDS ORDERED: ONDANSETRON 4MG 2ML VIAL As Ordered ONE (15:55)
[2023-05-23] MEDS ORDERED: SUGAMMADEX SODIUM 500 MG/5 ML VIAL (BRIDION) As Ordered ONE (15:55)
[2023-05-23] MEDS ORDERED: LIDOCAINE 2% 100MG/5ML SDV (FOR ANES.) As Ordered ONE (15:55)
[2023-05-23] MEDS ORDERED: HYDROmorphone HCL 2MG/ML 1ML VIAL As Ordered ONE (16:34)
[2023-05-23] MEDS ORDERED: LR 1,000 ML IV SCH (17:50)
[2023-05-23] MEDS ORDERED: ONDANSETRON 4MG 2ML VIAL IV PRN (17:50)
[2023-05-23] MEDS ORDERED: oxyCODONE 5MG TAB PO PRN (17:50)
[2023-05-23] MEDS ORDERED: fentaNYL 100 MCG/2 ML INJECTION IV PRN (17:50)
[2023-05-23] MEDS: oxyCODONE 5MG TAB PO PRN ×2 (18:02→18:37)
[2023-05-23] MEDS: MEPERIDINE 25 MG/ML 1ML VIAL IV PRN ×2 (18:03→18:09)
[2023-05-23] MEDS: MORPHINE 2 MG/ML 1ML VIAL IV PRN ×2 (18:03→18:20)
[2023-05-23] MEDS ORDERED: MIDAZOLAM INJ 2MG/2ML VIAL IV PRN (18:05)
[2023-05-23 19:52] VITALS: BP 115/63; TEMP 97.3; O2SAT 96
[2023-05-26] MEDS ORDERED: AMOX875T2 PO (02:23)
[2023-05-26] MEDS ORDERED: ALBU8.5H INH (02:23)
== END 2023-05-23 20:21 | disposition home or self-care (01) ==
LOC: M ED 10:55 → M SDC 10:56
PROVIDERS: ATTEND Obstetrics & Gynecology
DX: O00.90 Unspecified ectopic pregnancy without intrauterine pregnancy (principal); N80.9 Endometriosis, unspecified
CPT/HCPCS: 58662; 76801; 76817; 80048; 81001; 84702; 85025; 86850; 86900; 86901; 87635; 88305; 93976; 99284; J0665; J1100; J1170; J1885; J2175; J2250; J2405; J3010

== ENCOUNTER 2023-05-25 13:59 | Emergency (ER) | payer OTHER ==
[~2023-05-25] VITALS: Ht 170.2 cm; Wt 69.7 kg
[2023-05-25 15:26] LABS: BASO % 0.2 % (0.0-1.0); EOS # 0.1 10^3/uL (0.0-0.5); EOS % 0.5 % (0.0-3.0); HEMATOCRIT 31.3 % (36.0-47.0); HEMOGLOBIN 10.5 g/dl (12.0-15.5); LYMPH # 1.8 10^3/uL (1.5-5.0); LYMPH % 16.1 % (24.0-44.0); MEAN CORPUSCULAR HEMOGLOBIN 29.1 pg (27.0-33.0); MEAN CORPUSCULAR HGB CONC 33.5 g/dl (32.0-36.5); MEAN CORPUSCULAR VOLUME 86.7 fl (80.0-96.0); MONO # 1.2 10^3/uL (0.0-0.8); MONO % 10.4 % (2.0-8.0); NEUTROPHILS # 8.2 10^3/uL (1.5-8.5); NEUTROPHILS % 72.4 % (36.0-66.0); PLATELET COUNT, AUTOMATED 240 10^3/uL (150-450); RED BLOOD COUNT 3.61 10^6/uL (4.00-5.40); WHITE BLOOD COUNT 11.3 10^3/uL (4.0-10.0)
[2023-05-25 15:48] LABS: BLOOD UREA NITROGEN 6 MG/DL (9-23); CALCIUM LEVEL 8.9 MG/DL (8.5-10.1); CARBON DIOXIDE LEVEL 25 MMOL/L (20-31); CHLORIDE LEVEL 106 MMOL/L (98-107); CREATININE FOR GFR 0.57 MG/DL (0.55-1.30); GLOMERULAR FILTRATION RATE > 60.0 (>60); GLUCOSE, FASTING 88 MG/DL (60-100); POTASSIUM SERUM 4.1 MMOL/L (3.5-5.1); SODIUM LEVEL 138 MMOL/L (136-145)
[2023-05-25] MEDS ORDERED: KETOROLAC 30 MG/ML 1ML VIAL IV ONE ×2 (17:15→21:40)
[2023-05-25] MEDS ORDERED: BENZONATATE 100MG CAPSULE PO ONE (17:15)
[2023-05-25] MEDS ORDERED: ISOVUE-370 76% 100ML VIAL As Ordered ONE (17:15)
[2023-05-25 17:31] LABS: VENOUS BASE EXCESS -2.4 (-2.0-2.0); VENOUS HCO3 22.9 MMOL/L (23.0-27.0); VENOUS O2 SATURATION 73.3 % (60.0-80.0); VENOUS PARTIAL PRESSURE CO2 41.8 mmHg (38.0-50.0); VENOUS PARTIAL PRESSURE O2 38.6 mmHg (30.0-50.0); VENOUS PH 7.357 UNITS (7.330-7.430); VENOUS TOTAL CO2 24.2 MMOL/L (24.0-28.0)
[2023-05-25 18:08] LABS: CK-MB VALUE MASS < 1.0 NG/ML (<3.6)
[2023-05-25 18:09] LABS: CPK CREATINE PHOSPHOKINASE 67 U/L (34-145); MB/CK RELATIVE INDEX 1.49 (< OR =4)
[2023-05-25] MEDS ORDERED: IPRATROPIUM 0.5MG/ALBUTEROL 2.5MG INH SOL UD 3ML (DUONEB) NEB PRN (19:50)
[2023-05-25] MEDS ORDERED: AUGMENTIN 875 MG TAB PO ONE (21:45)
[2023-05-25 22:38] VITALS: BP 105/55; TEMP 98; O2SAT 100
[2023-05-26] MEDS ORDERED: AMOX875T2 PO (02:23)
[2023-05-26] MEDS ORDERED: ALBU8.5H INH (02:23)
== END 2023-05-25 22:42 | disposition home or self-care (01) ==
LOC: M ED 13:59
DX: O02.81 Inappropriate change in quantitative human chorionic gonadotropin (hCG) in early pregnancy (principal); N83.202 Unspecified ovarian cyst, left side; J18.9 Pneumonia, unspecified organism
CPT/HCPCS: 36415; 71045; 71275; 76801; 80048; 82550; 82553; 82803; 84484; 84702; 85025; 85379; 93005; 94640; 96374; 96376; 99284; J1885; Q9967

== ENCOUNTER 2023-05-27 14:23 | Emergency (ER) | payer OTHER ==
[~2023-05-27] VITALS: Ht 170.2 cm; Wt 71.4 kg
[~2023-05-27 14:23] MED LIST changes: +ALBU8.5H INH; +AMOX875T2 PO
[2023-05-27 14:24] VITALS: TEMP 97.8
[2023-05-27] MEDS ORDERED: OXYC-517 (14:52)
[2023-05-27 18:33] LABS: BASO % 0.4 % (0.0-1.0); EOS # 0.2 10^3/uL (0.0-0.5); EOS % 1.7 % (0.0-3.0); HEMATOCRIT 32.9 % (36.0-47.0); HEMOGLOBIN 11.3 g/dl (12.0-15.5); LYMPH # 2.8 10^3/uL (1.5-5.0); LYMPH % 27.1 % (24.0-44.0); MEAN CORPUSCULAR HEMOGLOBIN 29.7 pg (27.0-33.0); MEAN CORPUSCULAR HGB CONC 34.3 g/dl (32.0-36.5); MEAN CORPUSCULAR VOLUME 86.4 fl (80.0-96.0); MONO # 0.8 10^3/uL (0.0-0.8); MONO % 8.2 % (2.0-8.0); NEUTROPHILS # 6.4 10^3/uL (1.5-8.5); NEUTROPHILS % 62.3 % (36.0-66.0); PLATELET COUNT, AUTOMATED 292 10^3/uL (150-450); RED BLOOD COUNT 3.81 10^6/uL (4.00-5.40); WHITE BLOOD COUNT 10.2 10^3/uL (4.0-10.0)
[2023-05-27 18:53] LABS: ALBUMIN 4.4 G/DL (3.2-5.2); ALKALINE PHOSPHATASE 51 U/L (46-116); ALT/SGPT 13 U/L (7.0-40); AST/SGOT 11 U/L (<34); BILIRUBIN,DIRECT 0.3 MG/DL (<0.4); BILIRUBIN,TOTAL 0.8 MG/DL (0.3-1.2); BLOOD UREA NITROGEN 8 MG/DL (9-23); CALCIUM LEVEL 9.3 MG/DL (8.5-10.1); CARBON DIOXIDE LEVEL 24 MMOL/L (20-31); CHLORIDE LEVEL 103 MMOL/L (98-107); CREATININE FOR GFR 0.55 MG/DL (0.55-1.30); GLOMERULAR FILTRATION RATE > 60.0 (>60); GLUCOSE, FASTING 62 MG/DL (60-100); POTASSIUM SERUM 3.3 MMOL/L (3.5-5.1); SODIUM LEVEL 140 MMOL/L (136-145); TOTAL PROTEIN 7.6 G/DL (5.7-8.2)
[2023-05-27 22:32] VITALS: BP 124/70; O2SAT 95
== END 2023-05-27 22:33 | disposition home or self-care (01) ==
LOC: M ED 14:23
DX: Z32.00 Encounter for pregnancy test, result unknown (principal); R10.2 Pelvic and perineal pain; Z79.52 Long term (current) use of systemic steroids; Z79.899 Other long term (current) drug therapy

== ENCOUNTER 2023-06-20 17:22 | Emergency (ER) | payer OTHER ==
[~2023-06-20] VITALS: Ht 170.2 cm; Wt 69.5 kg
[~2023-06-20 17:22] MED LIST changes: +OXYC-517
[2023-06-20 17:23] VITALS: BP 101/50; TEMP 101.4; O2SAT 100
== END 2023-06-20 19:35 | disposition left against medical advice (07) ==
LOC: M ED 17:22
DX: Z53.21 Procedure and treatment not carried out due to patient leaving prior to being seen by health care provider (principal)

== ENCOUNTER 2025-01-25 17:43 | Emergency (ER) | payer OTHER ==
[~2025-01-25] VITALS: Ht 170.2 cm; Wt 65.0 kg
[~2025-01-25 17:43] MED LIST changes: +GABA-1172 PO; -GABA-282 PO; -PSEU30TA86 PO; +PSEU30TA87 PO; +TRAM1TAB42 PO; -TRAM37.53 PO
[2025-01-25 18:21] LABS: BASO % 0.3 % (0.0-1.0); EOS # 0.1 10^3/uL (0.0-0.5); EOS % 0.9 % (0.0-3.0); HEMATOCRIT 32.6 % (36.0-47.0); HEMOGLOBIN 11.4 g/dl (12.0-15.5); LYMPH # 2.2 10^3/uL (1.5-5.0); LYMPH % 32.4 % (24.0-44.0); MEAN CORPUSCULAR HEMOGLOBIN 29.3 pg (27.0-33.0); MEAN CORPUSCULAR VOLUME 83.8 fl (80.0-96.0); MONO # 0.6 10^3/uL (0.0-0.8); MONO % 8.7 % (2.0-8.0); NEUTROPHILS # 3.9 10^3/uL (1.5-8.5); NEUTROPHILS % 57.6 % (36.0-66.0); PLATELET COUNT, AUTOMATED 216 10^3/uL (150-450); RED BLOOD COUNT 3.89 10^6/uL (4.00-5.40); WHITE BLOOD COUNT 6.8 10^3/uL (4.0-10.0)
[2025-01-25] MEDS: ONDANSETRON 4MG 2ML VIAL IV ONE (18:45)
[2025-01-25] MEDS: KETOROLAC 30 MG/ML 1ML VIAL IV ONE (18:46)
[2025-01-25 18:52] LABS: ALBUMIN 4.2 G/DL (3.2-5.2); ALKALINE PHOSPHATASE 52 U/L (35-104); ALT/SGPT 11 U/L (7.0-40); AST/SGOT 11 U/L (<34); BILIRUBIN,TOTAL 0.4 MG/DL (0.3-1.2); BLOOD UREA NITROGEN 12 MG/DL (9-23); CALCIUM LEVEL 8.9 MG/DL (8.5-10.1); CARBON DIOXIDE LEVEL 27 MMOL/L (20-31); CHLORIDE LEVEL 104 MMOL/L (98-107); CK-MB VALUE MASS < 1.0 NG/ML (<3.6); CREATININE FOR GFR 0.63 MG/DL (0.55-1.30); GLOMERULAR FILTRATION RATE > 90.0 (>60); GLUCOSE, FASTING 117 MG/DL (60-100); POTASSIUM SERUM 3.6 MMOL/L (3.5-5.1); SODIUM LEVEL 139 MMOL/L (136-145)
[2025-01-25 18:55] LABS: CPK CREATINE PHOSPHOKINASE 74 U/L (34-145); MB/CK RELATIVE INDEX 1.35 (< OR =4)
[2025-01-25 19:45] LABS: CK-MB VALUE MASS < 1.0 NG/ML (<3.6)
[2025-01-25 19:47] LABS: CPK CREATINE PHOSPHOKINASE 73 U/L (34-145); MB/CK RELATIVE INDEX 1.36 (< OR =4)
[2025-01-25 20:19] VITALS: BP 109/67; TEMP 98.3; O2SAT 100
== END 2025-01-25 20:20 | disposition home or self-care (01) ==
LOC: M ED 17:43
DX: R07.9 Chest pain, unspecified (principal); N80.9 Endometriosis, unspecified; Z79.52 Long term (current) use of systemic steroids; Z79.899 Other long term (current) drug therapy; Z79.2 Long term (current) use of antibiotics
CPT/HCPCS: 71045; 80053; 82550; 82553; 84484; 84702; 85025; 93005; 93041; 94760; 96374; 96375; 99284; J1885; J2405